=== PATIENT | male | born 1960 | race Caucasian/White ===

== ENCOUNTER 2020-04-14 15:24 | Outpatient (CLI) | payer OTHER ==
[2020-04-14] MEDS ORDERED: turmeric PO (16:02)
[2020-04-14] MEDS ORDERED: ASPI-496 PO (16:02)
[2020-04-14] MEDS ORDERED: paxil PO (16:02)
[2020-04-14] MEDS ORDERED: ginger PO (16:02)
[2020-04-14 16:24] LABS: BASOPHILS # (AUTO) 0.04 x10^3/uL (0-0.1); BASOPHILS % (AUTO) 1 % (0-1); EOSINOPHILS # (AUTO) 0.28 x10^3/uL (0-0.4); EOSINOPHILS % (AUTO) 3 % (1-7); LYMPHOCYTES # (AUTO) 2.17 x10^3/uL (1-3.4); LYMPHOCYTES % (AUTO) 26 % (22-44); MD NO; MEAN CORPUSCULAR HEMOGLOBIN 29.8 pg (27.5-34.5); MEAN CORPUSCULAR HGB CONC 33.4 g/dL (33.2-36.2); MEAN CORPUSCULAR VOLUME 89.4 fL (81-97); MEAN PLATELET VOLUME 9.1 fL (7.4-10.4); MONOCYTES # (AUTO) 0.63 x10^3/uL (0.2-0.8); MONOCYTES % (AUTO) 8 % (2-9); NEUTROPHILS # (AUTO) 5.13 x10^3/uL (1.8-6.8); NEUTROPHILS % (AUTO) 62 % (42-75); PLATELET COUNT 202 x10^3/uL (130-400); RED BLOOD COUNT 5.19 x10^6/uL (4.38-5.82); RED CELL DISTRIBUTION WIDTH 14.2 % (9.4-14.8)
[2020-04-14] MEDS ORDERED: atenolol PO (16:30)
[2020-04-14 16:34] LABS: INTERNATIONAL NORMALIZED RATIO 0.91 (0.93-1.1); PROTHROMBIN TIME 9.6 Seconds (9.6-11.5)
[2020-04-14 16:35] LABS: ALANINE AMINOTRANSFERASE 40 U/L (12-78); ALBUMIN 3.6 g/dL (3.4-5.0); ANION GAP 6 mmol/L (5-15); CALCIUM 8.9 mg/dL (8.5-10.1); CHLORIDE 104 mmol/L (98-107); CREATININE 1.21 mg/dL (0.7-1.3)
[2020-04-14 16:38] LABS: ALKALINE PHOSPHATASE 107 U/L (45-117); BILIRUBIN,TOTAL 0.4 mg/dL (0.2-1.0); TOTAL PROTEIN 6.8 g/dL (6.4-8.2)
[2020-04-14 16:57] LABS: MICROSCOPIC INDICATED
== END 2020-04-14 23:59 | disposition home or self-care (01) ==
LOC: STAR 15:24
PROVIDERS: ATTEND Neurological Surgery
DX: Z01.818 Encounter for other preprocedural examination (principal); Z01.811 Encounter for preprocedural respiratory examination; Z01.812 Encounter for preprocedural laboratory examination; Z11.59 Encounter for screening for other viral diseases; M50.30 Other cervical disc degeneration, unspecified cervical region; M50.10 Cervical disc disorder with radiculopathy, unspecified cervical region; R79.1 Abnormal coagulation profile; R82.90 Unspecified abnormal findings in urine; R94.31 Abnormal electrocardiogram [ECG] [EKG]; I44.4 Left anterior fascicular block
CPT/HCPCS: 36415; 71046; 80053; 81001; 85025; 85610; 85730; 93005; U0001

== ENCOUNTER 2020-04-18 07:06 | Inpatient (IN) | payer OTHER ==
[~2020-04-18] VITALS: Ht 190.5 cm; Wt 107.0 kg
[~2020-04-18 07:06] MED LIST: ASPI-496 PO; BACITRACIN 50,000 UNIT ONE; BUPIVACAINE/PF-EPI 0.5% 1:200K ONE; atenolol PO; ginger PO; paxil PO; turmeric PO
[2020-04-18] MEDS ORDERED: LACTATED RINGERS 1,000 ML IV SCH (07:28)
[2020-04-18] MEDS ORDERED: CHLORHEXIDINE 15 ML UDC MM ONE (07:30)
[2020-04-18] MEDS ORDERED: ATEN25TA PO (07:51)
[2020-04-18] MEDS ORDERED: MELA3TAB31 PO (07:51)
[2020-04-18] MEDS ORDERED: PARO20TA4 PO (07:51)
[2020-04-18] MEDS ORDERED: FENTANYL PF 250 MCG/5ML ONE ×2 (08:31→10:17)
[2020-04-18] MEDS ORDERED: MIDAZOLAM 1 MG/ML, 2ML ONE (08:31)
[2020-04-18] MEDS ORDERED: OXYcodone 5 MG/5 ML ORAL.SOL UDC PO PRN (10:00)
[2020-04-18] MEDS ORDERED: FENTANYL PF 100 MCG/2ML IV PRN (10:00)
[2020-04-18] MEDS ORDERED: hydrALAzine 20 MG/ML, 1ML IV PRN (10:00)
[2020-04-18] MEDS ORDERED: ACETAMINOPHEN 325 MG TABLET PO PRN (10:00)
[2020-04-18] MEDS ORDERED: DIAZEPAM 5 MG/ML, 2ML IVPush PRN (10:00)
[2020-04-18] MEDS ORDERED: PROMETHAZINE 25 MG/ML, 1ML IV PRN (10:00)
[2020-04-18] MEDS ORDERED: ALBUTEROL SULFATE 2.5 MG/3 ML NPPB PRN (10:00)
[2020-04-18] MEDS ORDERED: MEPERIDINE/PF 25MG/0.5ML IVPush PRN (10:00)
[2020-04-18] MEDS ORDERED: KETOROLAC 30 MG/1 ML IV PRN (10:00)
[2020-04-18] MEDS ORDERED: LABETALOL 5MG/ML, 20ML IV PRN (10:00)
[2020-04-18] MEDS ORDERED: DEXAMETHASONE 4 MG/ML, 1ML ONE (10:52)
[2020-04-18] MEDS ORDERED: ROCURONIUM 10MG/ML,5ML ONE (10:52)
[2020-04-18] MEDS ORDERED: PROPOFOL 10 MG/ML, 20ML ONE (10:52)
[2020-04-18] MEDS ORDERED: SUGAMMADEX 200 MG/2 ML IVPush ONE (10:52)
[2020-04-18] MEDS ORDERED: CEFAZOLIN 1,000 MG ONE (10:52)
[2020-04-18] MEDS ORDERED: GLYCOPYRROLATE 0.2MG/1ML, 5ML ONE (10:52)
[2020-04-18] MEDS ORDERED: ONDANSETRON 2MG/ML, 2ML ONE (10:52)
[2020-04-18] MEDS ORDERED: METOPROLOL 1 MG/ML, 5ML ONE ×2 (10:52)
[2020-04-18] MEDS ORDERED: NEOSTIGMINE 1 MG/ML, 10ML ONE (10:52)
[2020-04-18] MEDS ORDERED: SUCCINYLCHOLINE 20 MG/ML, 10ML ONE (10:52)
[2020-04-18] MEDS ORDERED: HYDROmorphone 1 MG/ML, 1ML INJ ONE (11:24)
[2020-04-18] MEDS: HYDROmorphone 2 MG/ML, 1ML IVPush PRN ×2 (11:27→11:43)
[2020-04-18] MEDS ORDERED: OXYcodone/APAP 5/325MG TABLET PO PRN (11:30)
[2020-04-18] MEDS ORDERED: PROMETHAZINE 25 MG/ML, 1ML IM PRN (11:30)
[2020-04-18] MEDS ORDERED: METHOCARBAMOL 1,000 MG in DEXTROSE 5% 100 ML IV ONE (11:30)
[2020-04-18] MEDS ORDERED: ACETAMINOPHEN 650 MG SUPP PR PRN (11:30)
[2020-04-18] MEDS ORDERED: MAGNESIUM HYDROXIDE 8%, 30ML UDC PO PRN (11:30)
[2020-04-18] MEDS ORDERED: SENNA/DOCUSATE TABLET PO PRN (11:30)
[2020-04-18] MEDS ORDERED: DIPHENHYDRAMINE 50 MG/ML, 1ML IVPush PRN (11:30)
[2020-04-18] MEDS ORDERED: BISACODYL 10 MG SUPP PR PRN (11:30)
[2020-04-18] MEDS ORDERED: PHARMACY MAY ADJ FOR RENAL FX MC PRN (11:30)
[2020-04-18] MEDS ORDERED: HYDROmorphone 1 MG/ML, 1ML INJ IVPush PRN (11:30)
[2020-04-18] MEDS ORDERED: ONDANSETRON 2MG/ML, 2ML IVPush PRN (11:30)
[2020-04-18] MEDS ORDERED: DIAZEPAM 5 MG/ML, 2ML ONE (12:05)
[2020-04-18 12:25] VITALS: BP 139/85
[2020-04-18] MEDS: DEXAMETHASONE 4 MG/ML, 1ML IVPush SCH ×2 (13:23→19:57)
[2020-04-18] MEDS: D5%-0.9% NACL+KCL 20MEQ 1,000 ML IV SCH ×2 (13:23→21:30)
[2020-04-18] MEDS: HYDROcodone/APAP 5/325 TABLET PO PRN ×2 (16:02→19:58)
[2020-04-18] MEDS: CEFUROXIME 1.5 GM in SODIUM CHLORIDE 0.9% 50 ML IVPB SCH (17:29)
[2020-04-18 19:58] VITALS: BP 138/87
[2020-04-18] MEDS: METHOCARBAMOL 750 MG TABLET PO PRN (19:58)
[2020-04-18] MEDS: MELATONIN 3 MG TABLET PO SCH (21:00)
[2020-04-18 23:38] VITALS: BP 112/68
[2020-04-19] MEDS: MELATONIN 3 MG TABLET PO SCH (00:08)
[2020-04-19] MEDS: HYDROcodone/APAP 5/325 TABLET PO PRN ×2 (01:57→11:33)
[2020-04-19] MEDS: CEFUROXIME 1.5 GM in SODIUM CHLORIDE 0.9% 50 ML IVPB SCH (01:57)
[2020-04-19] MEDS: DEXAMETHASONE 4 MG/ML, 1ML IVPush SCH ×2 (01:57→08:01)
[2020-04-19 04:00] VITALS: BP 129/75
[2020-04-19 05:35] VITALS: BP 129/75
[2020-04-19] MEDS: D5%-0.9% NACL+KCL 20MEQ 1,000 ML IV SCH (05:37)
[2020-04-19] MEDS: METHOCARBAMOL 750 MG TABLET PO PRN (05:42)
[2020-04-19 07:56] VITALS: BP 143/83
[2020-04-19] MEDS ORDERED: ATENOLOL 25 MG TABLET PO SCH (09:00)
[2020-04-19] MEDS ORDERED: PAROXETINE 20 MG TABLET PO SCH (09:00)
[2020-04-19] MEDS ORDERED: HYDR-3240 PO (09:21)
[2020-04-19] MEDS ORDERED: METH4TAB2 PO (09:23)
[2020-04-19] MEDS ORDERED: METH750T87 PO (09:23)
== END 2020-04-19 12:10 | disposition home or self-care (01) | DRG 472 ==
LOC: ORIP 07:06 → 4NE 12:23 → DCLOUNGE 04-19 11:56
PROVIDERS: ADMIT Neurological Surgery; ATTEND Neurological Surgery
PROC: 0RB30ZZ Excision of Cervical Vertebral Disc, Open Approach (ICD-10-PCS; 2020-04-18)
PROC: 00NW0ZZ Release Cervical Spinal Cord, Open Approach (ICD-10-PCS; 2020-04-18)
PROC: 0RG20A0 Fusion of 2 or more Cervical Vertebral Joints with Interbody Fusion Device, Anterior Approach, Anterior Column, Open Approach (ICD-10-PCS; principal; 2020-04-18 09:30)
DX: M48.02 Spinal stenosis, cervical region (principal); G95.20 Unspecified cord compression; M43.13 Spondylolisthesis, cervicothoracic region; M19.90 Unspecified osteoarthritis, unspecified site; M50.10 Cervical disc disorder with radiculopathy, unspecified cervical region; Z88.8 Allergy status to other drugs, medicaments and biological substances; Z79.899 Other long term (current) drug therapy
CPT/HCPCS: 36415; 72040; 86850; 86900; C1713; G0378; J0690; J0697; J1100; J1170; J2250; J2405; J2704; J2710; J3010; J3360; C1762; C1889; J0330; J2800; J3480; J7120